=== PATIENT | female | born 1975 | race Asian ===

== ENCOUNTER 2016-08-12 01:10 | Emergency (ER) | payer SELFPAY ==
[~2016-08-12] VITALS: Ht 154.9 cm; Wt 55.8 kg
--- NOTE | 2016-08-12 01:10 | NUR ---
BIB [facility] TO ER OF2
--- NOTE | 2016-08-12 01:15 | NUR ---
Patient being evaluated by physician.
[2016-08-12 01:19] VITALS: BP 145/99
--- NOTE | 2016-08-12 01:19 | NUR ---
41 Y/O HERE BIB [facility] FOR PREBOOK CLEARANCE.
[2016-08-12 01:38] VITALS: BP 145/99
--- NOTE | 2016-08-12 01:38 | NUR ---
PER ER MD Patient STABLE FOR discharged with v/s stable, NO S/S OF DISTRESS NOTED ON D/C.. Written and verbal after care instructions given and explained. Patient verbalized understanding. Police with in custody. All questions addressed prior to discharge. Advised to follow up with [facility].
== END 2016-08-12 01:38 ==
LOC: MED 01:10 → EDSEX 01:10 → MED 01:38
DX: Z02.89 Encounter for other administrative examinations (principal); F10.129 Alcohol abuse with intoxication, unspecified; Y90.9 Presence of alcohol in blood, level not specified